=== PATIENT | female | born 1980 | race Caucasian/White ===

== ENCOUNTER 2018-06-07 17:35 | Emergency (ER) | payer MEDICAID ==
[~2018-06-07] VITALS: Ht 160 cm; Wt 66.2 kg
[2018-06-07 17:45] VITALS: BP 160/110
[2018-06-07] MEDS ORDERED: HYDROcodone-ACET 10/325MG TAB PO ONE (21:15)
[2018-06-07] MEDS ORDERED: BACLOFEN 10 MG TAB PO ONE (21:15)
== END 2018-06-07 21:28 | disposition home or self-care (01) ==
LOC: ER 17:41
DX: S00.93XA Contusion of unspecified part of head, initial encounter (principal); S10.93XA Contusion of unspecified part of neck, initial encounter; I10 Essential (primary) hypertension; Z88.0 Allergy status to penicillin; Z88.1 Allergy status to other antibiotic agents; Y08.89XA Assault by other specified means, initial encounter; Y93.89 Activity, other specified; Y99.8 Other external cause status; Y92.89 Other specified places as the place of occurrence of the external cause
CPT/HCPCS: 70450; 70490; 72100

== ENCOUNTER 2018-12-14 18:10 | Emergency (ER) | payer MEDICAID ==
[~2018-12-14] VITALS: Ht 162.6 cm; Wt 59.6 kg
[2018-12-14 18:28] VITALS: BP 134/98
== END 2018-12-14 19:47 | disposition left against medical advice (07) ==
LOC: ER 18:12
DX: R10.9 Unspecified abdominal pain (principal); Z53.21 Procedure and treatment not carried out due to patient leaving prior to being seen by health care provider

== ENCOUNTER 2018-12-30 17:55 | Emergency (ER) | payer MEDICAID ==
[~2018-12-30] VITALS: Ht 167.6 cm; Wt 68.0 kg
[2018-12-30 20:26] LABS: Basophils # (auto) 0.2 uL; Basophils % (auto) 1.1 % (0.0-2.0); Eosinophils # (auto) 0.1 uL; Eosinophils % (auto) 0.6 % (0.0-7.0); Hematocrit 45.8 % (36.0-46.0); Hemoglobin 14.8 g/dL (12.2-16.2); Lymphocytes # (auto) 1.2 uL; Lymphocytes % (auto) 7.4 % (10.0-50.0); Mean Corpuscular Hemoglobin 28.7 pg (28.0-32.0); Mean Corpuscular Hgb Conc. 32.2 g/dL (32.0-36.0); Mean Corpuscular Volume 89.1 fL (80.0-100.0); Monocytes # (auto) 0.8 uL; Monocytes % (auto) 4.8 % (0.0-12.0); Neutrophils # (auto) 13.8 uL; Neutrophils % (auto) 86.1 % (37.0-80.0); Platelet Count (auto) 362 10^3/uL (140-450); Red Blood Cells 5.14 10^6/uL (4.0-5.20); Red Cell Distribution Width 14.8 % (11.8-14.3); White Blood Cell 16.1 10^3/uL (4.4-10.8)
[2018-12-30 21:00] LABS: Albumin 3.3 g/dL (3.4-5.0); BUN/Creatinine Ratio 15.3; Calcium 8.2 mg/dL (8.5-10.1); Potassium 3.5 mmol/L (3.5-5.1)
[2018-12-30 21:02] LABS: Bilirubin, Total 0.4 mg/dL (0.2-1.0)
[2018-12-30 22:56] LABS: Urine Bacteria MANY /hpf (None Seen); Urine Blood Negative /uL (Negative); Urine Mucus FEW (None Seen); Urine WBC 24 /hpf (0 - 5)
[2018-12-31] MEDS ORDERED: cefTRIAXone SOD 1,000 MG VL IV ONE (00:15)
[2018-12-31] MEDS ORDERED: LEVOFLOXACIN 750MG 150 ML IV ONE (00:30)
[2018-12-31 01:07] VITALS: BP 129/78
== END 2018-12-31 03:54 | disposition home or self-care (01) ==
LOC: EDBD 17:58 → ER 18:15
DX: N39.0 Urinary tract infection, site not specified (principal); I10 Essential (primary) hypertension; E11.9 Type 2 diabetes mellitus without complications; F17.210 Nicotine dependence, cigarettes, uncomplicated; Z88.0 Allergy status to penicillin; Z88.8 Allergy status to other drugs, medicaments and biological substances
CPT/HCPCS: 36415; 74176; 80053; 81001; 82150; 82962; 83690; 85025; 96365; 99284; J1956

== ENCOUNTER → 2020-01-10 | Emergency (ER) | payer MEDICAID ==
[~2020-01-10] VITALS: Ht 162.6 cm; Wt 61.2 kg
[2020-01-10 19:56] VITALS: BP 151/102
== END | disposition home or self-care (01) ==
LOC: ER 14:10
DX: S93.402A Sprain of unspecified ligament of left ankle, initial encounter (principal); W19.XXXA Unspecified fall, initial encounter; Y93.89 Activity, other specified; Y92.89 Other specified places as the place of occurrence of the external cause; Y99.8 Other external cause status
CPT/HCPCS: 73610

== ENCOUNTER 2022-02-19 21:11 | Emergency (ER) | payer MEDICAID ==
[~2022-02-19] VITALS: Ht 167.6 cm; Wt 96.0 kg
[2022-02-19 22:00] VITALS: BP 133/89
[2022-02-20] MEDS ORDERED: CLINDAMYCIN HCL 150 MG CAP PO ONE (01:30)
[2022-02-20] MEDS ORDERED: CLIN-188 PO (01:31)
== END 2022-02-20 01:42 | disposition home or self-care (01) ==
LOC: ER 21:11
DX: L03.312 Cellulitis of back [any part except buttock and flank] (principal); F17.210 Nicotine dependence, cigarettes, uncomplicated; Z90.710 Acquired absence of both cervix and uterus; Z79.2 Long term (current) use of antibiotics; Z88.0 Allergy status to penicillin; Z88.5 Allergy status to narcotic agent; Z88.8 Allergy status to other drugs, medicaments and biological substances